=== PATIENT | male | born 1970 | race Caucasian/White ===

== ENCOUNTER 2018-12-23 04:49 | Emergency (ER) | payer OTHER, BC ==
[2018-12-23] MEDS: LIDOCAINE 1% (MPF) 5 ML VIAL INJ (06:29)
== END 2018-12-23 07:18 | disposition home or self-care (01) ==
LOC: FTE 04:49
DX: S01.511A Laceration without foreign body of lip, initial encounter (principal); W01.0XXA Fall on same level from slipping, tripping and stumbling without subsequent striking against object, initial encounter; Y92.9 Unspecified place or not applicable
CPT/HCPCS: 12011; 99283-25

== ENCOUNTER 2019-01-02 01:52 | Emergency (ER) | payer OTHER | END 2019-01-02 02:52 | disposition home or self-care (01) | LOC: FTE 01:52 | DX: Z48.02 Encounter for removal of sutures (principal) | CPT/HCPCS: 99281; Z7502 ==